=== PATIENT | male | born 1970 | race Caucasian/White ===

== ENCOUNTER 2017-03-13 09:12 | Outpatient (CLI) | payer MEDICARE ==
--- NOTE | 2017-03-13 10:13 | XRay Report ---
RIGHT SHOULDER, 3 VIEWS History: Right shoulder pain. Findings: Moderate osteoarthritic changes are identified at the right acromioclavicular joint. No evidence for fracture, dislocation or ligamentous injury. The soft tissues are within normal limits. Impression: Osteoarthritic changes.
== END 2017-03-13 09:13 | disposition home or self-care (01) ==
LOC: XRAY 09:12
PROVIDERS: ATTEND Nurse Practitioner
DX: M19.011 Primary osteoarthritis, right shoulder (principal)

== ENCOUNTER 2017-04-19 05:45 | Day surgery (SDC) | payer MEDICARE ==
[~2017-04-19 05:45] MED LIST: ANCEF/STERILE WATER 2 GM/20 ML IV NR
[2017-04-19] MEDS ORDERED: NACL BACTERIOSTATIC INFILTRATI ONE (06:51)
[2017-04-19] MEDS ORDERED: PERCOCET 5/325 PO PRN (06:52)
[2017-04-19] MEDS ORDERED: SUBLIMAZE IV ONE (06:52)
[2017-04-19] MEDS ORDERED: ZOFRAN IV PRN (06:52)
[2017-04-19] MEDS ORDERED: LACTATED RINGERS 1,000 ML IV SCH (07:00)
[2017-04-19] MEDS ORDERED: VERSED IV NR (07:00)
[2017-04-19] MEDS ORDERED: PEPCID PO NR (07:00)
--- NOTE | 2017-04-19 07:02 | Anesthesia Consultation ---
Anesthesia Consult and Med Hx Date of service: 04/19/17 - Airway Anesthetic Teeth Evaluation: Good ROM Head & Neck: Inadequate Mental/Hyoid Distance: Adequate Mallampati Class: Class II Intubation Access Assessment: Possibly Difficult - Pulmonary Exam CTA: Yes - Cardiac Exam Cardiac Exam: RRR - Pre-Operative Health Status ASA Pre-Surgery Classification: ASA2 Proposed Anesthetic Plan: General Nerve Block: IS - Pre-Anesthesia Comment Pre-Anesthesia Comments: H/O trauma with neck and back fusion. Noted moderate decrease in neck extension. - Pulmonary Hx Smoking: No Hx Sleep Apnea: No (LESLIE PRE SCREEN LOW RISK) - Cardiovascular System Hx Hypertension: No Hx Angina: (11/2016- NEGATIVE CARDIC WORKUP) Hx Valvular Heart Disease: Yes (? LEAKY HEART VALVE) - Central Nervous System Hx Back Pain: Yes - Other Systems Hx Cancer: No
--- NOTE | 2017-04-19 07:03 | Anesthesia Day of Surgery ---
Anesthesia Day of Surgery - Day of Surgery Patient Examined: Yes Patient H&P Reviewed: Yes Patient is NPO: Yes
[2017-04-19] MEDS ORDERED: DEPO-MEDROL ONE ×2 (07:12→10:03)
[2017-04-19] MEDS ORDERED: ADRENALIN ONE (07:13)
[2017-04-19] MEDS ORDERED: MARCAINE 0.5% 30 ML INFILTRATI ONE (07:26)
[2017-04-19] MEDS ORDERED: NACL 0.9% IR ONE ×4 (07:28→08:29)
[2017-04-19] MEDS ORDERED: ADRENALIN IR ONE (07:28)
[2017-04-19] MEDS ORDERED: DEPO-MEDROL INTRA-ARTI ONE ×2 (07:28)
[2017-04-19] MEDS ORDERED: DIPRIVAN 10 MG/ML IV ONE (07:31)
[2017-04-19] MEDS ORDERED: XYLOCAINE MPF 2% ONE (07:31)
[2017-04-19] MEDS ORDERED: SUBLIMAZE ONE (07:31)
[2017-04-19] MEDS ORDERED: MARCAINE 0.25% INFILTRATI ONE ×2 (08:29→10:05)
[2017-04-19] MEDS ORDERED: DECADRON ONE (10:27)
[2017-04-19] MEDS ORDERED: NEOSTIGMINE ONE (10:27)
[2017-04-19] MEDS ORDERED: ROBINUL ONE (10:27)
[2017-04-19] MEDS ORDERED: ZOFRAN ONE (10:27)
[2017-04-19] MEDS ORDERED: DEMEROL ONE (10:32)
--- NOTE | 2017-04-19 11:01 | Post Anesthesia Evaluation ---
- Post Anesthesia Evaluation Patient Participated: Yes Airway Patent: Yes Stable Respiratory Function: Yes Temp > 96.8F: Yes Pain Manageable: Yes Adequeate Hydration: Yes Anesthesia Complications: No
[2017-04-19] MEDS: MORPHINE IV PRN ×3 (11:10→12:30)
[2017-04-19 11:45] VITALS: BP 132/83
[2017-04-19] MEDS ORDERED: PERCOCET 5/325 PO ONE ×2 (14:01→14:10)
--- NOTE | 2017-04-19 17:30 | Procedure Note ---
Date of procedure: 04/19/17 Pre-op diagnosis: impingement syndrome right shoulder Post-op diagnosis: same Procedure: Arthroscopy right shoulder with subacromial decompression The patient was brought to the OR after being given a scalene nerve block for postop postop pain management the patient was placed on the OR table in the supine position following induction and intubation by anesthesia the patient was placed into the left lateral decubitus position at which point the right shoulder was then prepped and draped in the usual sterile manner. A timeout procedure was done to identify the patient and the correct operative site. Routine arthroscopic made about the subacromial space following introduction of the arthroscope and insufflation of the joint with normal saline solution examination revealed these findings patient was noted to have significant impingement from the acromioclavicular joint as well as the distal acromion and the rotator cuff tendon appeared to have a partial-thickness tear noted on the bursal side was probed for integrity and found to be intact A combination arthroscopic shaver and tissue ablator was used to remove the soft tissue from the subacromial space as well as the periosteum overlying the before meals joint following this a arthroscopic acromionizer bur was then used to be impinging bony areas next the shoulder was then copiously irrigated to remove any bone and soft tissue debris a second look was done the arm was rotated internally and externally to see if there is any remaining impingement there were none next the arthroscope was removed the stab wounds were repaired A Depo- Medrol and Marcaine mixture was then injected into the subacromial space next postop dressings were applied the patient tolerated the procedure there were no complications sent to postanesthesia recovery this Dr. Daniel Adames Anesthesia: STORM, regional Surgeon: DANIEL ADAMES Photographer Helper: JOAQUIN MONTELONGO Estimated blood loss: minimal Pathology: none Condition: stable Disposition: PACU
== END 2017-04-19 16:00 | disposition home or self-care (01) ==
LOC: OR 05:45
PROVIDERS: ATTEND Orthopaedic Surgery
DX: M75.41 Impingement syndrome of right shoulder (principal); M75.101 Unspecified rotator cuff tear or rupture of right shoulder, not specified as traumatic; E78.00 Pure hypercholesterolemia, unspecified; Z88.2 Allergy status to sulfonamides
CPT/HCPCS: 29822; A4217; J0171; J0690; J1030; J1100; J2175; J2250; J2270; J2405; J2704; J2710; J3010; J7120

== ENCOUNTER 2018-12-09 09:12 | Outpatient (CLI) | payer MEDICARE ==
[2018-12-09 10:36] LABS: Chol/HDL Ratio 6.07 %
== END 2018-12-09 09:13 | disposition home or self-care (01) ==
LOC: LAB 09:12
PROVIDERS: ATTEND Internal Medicine
DX: E78.2 Mixed hyperlipidemia (principal); R73.03 Prediabetes; I10 Essential (primary) hypertension; E78.00 Pure hypercholesterolemia, unspecified; K21.9 Gastro-esophageal reflux disease without esophagitis
CPT/HCPCS: 36415; 80061; 83036

== ENCOUNTER 2018-12-31 08:16 | Outpatient (CLI) | payer MEDICARE ==
--- NOTE | 2018-12-31 10:58 | XRay Report ---
LEFT HIP, 2 VIEWS INDICATION: M25.552,PAIN IN LEFT HIP. COMPARISON: None. IMPRESSION: No acute osseous or soft tissue abnormality. No significant DJD. Signer Name: Kevin Feliz Jr, MD Signed: 12/31/2018 10:53 AM Workstation Name: [id number]
== END 2018-12-31 08:17 | disposition home or self-care (01) ==
LOC: XRAY 08:16
PROVIDERS: ATTEND Internal Medicine
DX: M25.552 Pain in left hip (principal); I10 Essential (primary) hypertension; E78.00 Pure hypercholesterolemia, unspecified; K21.9 Gastro-esophageal reflux disease without esophagitis